=== PATIENT | male | born 1995 | race American Indian/Alaskan Native ===

== ENCOUNTER 2021-10-23 01:19 | Emergency (ER) | payer OTHER ==
[2021-10-23 01:42] VITALS: BP 129/75
--- NOTE | 2021-10-23 02:09 | Emergency Department Report ---
ED General Adult HPI - General Chief complaint: Rectal Pain Stated complaint: RECTAL PAIN Time Seen by Provider: 10/23/21 01:48 Source: patient Mode of arrival: Ambulatory Limitations: No Limitations - History of Present Illness Initial comments: 26-year-old -[place] male presents emerge department complaining of a few day history of progressively worsening rectal pain and swelling and some bleeding with wiping. Pain is worsened with certain bowel movements pain and palpation of the area initially discomfort started in July 2021 noticed a faint amount of swelling there. No fevers, chills, sweats no abdominal pain no nausea no vomit Radiation: non-radiation Quality: dull Improves with: none Worsens with: none Associated Symptoms: denies other symptoms Treatments Prior to Arrival: none - Related Data Previous Rx's Medication Instructions Recorded Last Taken Type Lidocaine [Lidocaine Cream] 1 gm TP DAILY #30 cream..g. 10/23/21 Unknown Rx bisacodyL [Dulcolax] 5 mg PO DAILY #14 tab 10/23/21 Unknown Rx cephALEXin [Keflex] 500 mg PO Q8HR #30 cap 10/23/21 Unknown Rx ED Review of Systems ROS: Stated complaint: RECTAL PAIN Other details as noted in HPI Comment: All other systems reviewed and negative ED Past Medical Hx - Past Medical History Previous Medical History?: No - Surgical History Past Surgical History?: No - Medications Home Medications: Home Medications Medication Instructions Recorded Confirmed Last Taken Type Lidocaine [Lidocaine Cream] 1 gm TP DAILY #30 cream..g. 10/23/21 Unknown Rx bisacodyL [Dulcolax] 5 mg PO DAILY #14 tab 10/23/21 Unknown Rx cephALEXin [Keflex] 500 mg PO Q8HR #30 cap 10/23/21 Unknown Rx ED Physical Exam - General Limitations: No Limitations General appearance: alert, in no apparent distress - Head Head exam: Present: atraumatic, normocephalic - Eye Eye exam: Present: normal appearance, PERRL Pupils: Present: normal accommodation - ENT ENT exam: Present: normal exam, normal orophraynx, mucous membranes moist, TM's normal bilaterally - Neck Neck exam: Present: normal inspection, full ROM. Absent: tenderness, lymphadenopathy - Respiratory Respiratory exam: Present: normal lung sounds bilaterally. Absent: respiratory distress, wheezes, rales, chest wall tenderness, accessory muscle use - Cardiovascular Cardiovascular Exam: Present: regular rate, normal rhythm. Absent: systolic murmur, diastolic murmur, rubs, gallop - GI/Abdominal GI/Abdominal exam: Present: soft, normal bowel sounds. Absent: distended, tenderness, guarding - Rectal Rectal exam: Present: deferred, hemorrhoids - Extremities Exam Extremities exam: Present: normal inspection - Back Exam Back exam: Present: normal inspection - Neurological Exam Neurological exam: Present: alert, oriented X3 - Psychiatric Psychiatric exam: Present: normal affect, normal mood - Skin Skin exam: Present: warm, dry, intact, normal color. Absent: rash ED Course Vital Signs 10/23/21 01:41 Temperature 98 F Pulse Rate 78 Respiratory 18 Rate Blood Pressure 129/75 [Right] Critical care attestation.: If time is entered above; I have spent that time in minutes in the direct care of this critically ill patient, excluding procedure time. ED Disposition Clinical Impression: Hemorrhoids Disposition: HOME / SELF CARE / HOMELESS Is pt being admited?: No Does the pt Need Aspirin: No Condition: Stable Instructions: Surgical Procedures for Hemorrhoids, Care After, Nonsurgical Procedures for Hemorrhoids, Care After, Hemorrhoids Prescriptions: bisacodyL [Dulcolax] 5 mg PO DAILY #14 tab cephALEXin [Keflex] 500 mg PO Q8HR #30 cap Lidocaine [Lidocaine Cream] 1 gm TP DAILY #30 cream..g. Referrals: [facility] [Provider Group] - 3-5 Days
== END 2021-10-23 03:18 | disposition home or self-care (01) ==
LOC: ED 01:19
DX: K64.9 Unspecified hemorrhoids (principal)
CPT/HCPCS: 99282